=== PATIENT | male | born 2000 | race Caucasian/White ===

== ENCOUNTER 2020-08-24 23:12 | Emergency (ER) | payer BC, OTHER ==
[~2020-08-24] VITALS: Ht 170 cm; Wt 130.0 kg
[2020-08-24] MEDS ORDERED: TETANUS,DIPTH,PERTUSS P/F (BOOSTRIX) 0.5 ML VIAL IM ONE (23:45)
--- NOTE | 2020-08-24 23:56 | ED Upper Extremity ---
General Chief Complaint: Laceration Stated Complaint: L HAND LACERATION Nursing Triage Note: left hand laceration from box knife approx. 2300. Allergies and Home Medications Allergies Coded Allergies: No Known Drug Allergies (Unverified , 08/24/20) Home Medications No Active Prescriptions or Reported Meds Past Yqtisgd-Fzbupg-Zcgirn Hx Patient Social History Alcohol Use: Occasionally Uses Smoking Status: Current Everyday Smoker Type Used: Electronic/Vapor 2nd Hand Smoke Exposure: Yes Recent Infectious Disease Expo: No Recent Hopitalizations: No Immunizations Up To Date Tetanus Booster (TDap): Less than 5yrs Seasonal Allergies Seasonal Allergies: No Past Medical History Surgeries: No Respiratory: No Cardiac: No Neurological: No Genitourinary: No Gastrointestinal: No Musculoskeletal: No Endocrine: No HEENT: No Cancer: No Psychosocial: No Integumentary: No Blood Disorders: No Physical Exam Vital Signs Vital Signs - First Documented 08/24/20 23:17 Temp 36.8 Pulse 98 Resp 18 B/P (MAP) 130/82 O2 Delivery Room Air Capillary Refill : Less Than 3 Seconds Height, Weight, BMI Height: '" Weight: lbs. oz. kg; 44.00 BMI Method: Progress/Results/Core Measures Results/Orders My Orders Orders - SALUD SPICER MD Dipht,Pertuss(Acell),Tet Adult (Boostrix (08/24/20 23:45) Medications Given in ED Current Medications Medications Dose Ordered Sig/Kandi Route Start Time Stop Time Status Last Admin Dose Admin Diphtheria/ Tetanus/Acell Pertussis 0.5 ml ONCE ONCE IM 08/24/20 23:45 08/24/20 23:46 DC 08/24/20 23:45 0.5 ML Vital Signs/I&O 08/24/20 23:17 Temp 36.8 Pulse 98 Resp 18 B/P (MAP) 130/82 O2 Delivery Room Air Departure Impression Primary Impression: Laceration of left hand Qualified Codes: S61.412A - Laceration without foreign body of left hand, initial encounter Disposition: 01 HOME, SELF-CARE Condition: Improved Departure-Patient Inst. Decision time for Depature: 23:54 Patient Instructions: Laceration Repair With Glue (DC) Add. Discharge Instructions: Set forKeep the wound clean and dry normal handwashing and bathing. Avoid scrub bandar directly over the glue. Do not submerge for about a week. Monitor the wound for signs of infection such as increasing redness, increasing pain, puslike drainage, or fever. Return to care if you notice the symptoms. Call with questions or concerns. You may cover the wound with gloves or Band-Aid. Avoid contacting the glue with the adhesive portion of the Band-Aid as this may soften the glue. If the glue breaks and bleeding occurs, apply direct pressure for 20 minutes and redress with fresh Band-Aid or gauze dressing. All discharge instructions reviewed with patient and/or family. Voiced understanding. Scripts No Active Prescriptions or Reported Meds SALUD SPICER MD Aug 24, 2020 23:56
== END 2020-08-25 00:01 | disposition home or self-care (01) ==
LOC: ER 23:14
DX: S61.412A Laceration without foreign body of left hand, initial encounter (principal); F17.290 Nicotine dependence, other tobacco product, uncomplicated; Z23 Encounter for immunization; W26.0XXA Contact with knife, initial encounter
CPT/HCPCS: 12011; 90715